=== PATIENT | male | born 1990 | race Caucasian/White ===

== ENCOUNTER 2019-04-23 20:46 | Emergency (ER) | payer SELFPAY ==
[~2019-04-23] VITALS: Ht 177.8 cm; Wt 70.3 kg
[~2019-04-23 20:46] MED LIST: QTP200T PO
--- OUTSIDE RECORDS SUMMARY | 2019-04-23 20:51 | XMS REPORT | Continuity of Care Document ---
Demographics Preferred Language Unknown Marital Status Unknown Nondenominational Affiliation Unknown Race Unknown Ethnic Group Unknown Author Organization Unknown Address Unknown Allergies There is no data. Medications There is no data. Problems Date Dx Coded Attending Type Code Diagnosis Diagnosed By 02/03/2013 729.5 PAIN IN LIMB 02/03/2013 782.0 DISTURBANCE OF SKIN SENSATION Procedures There is no data. Results There is no data. Encounters ACCT No. Visit Date/Time Discharge Status Pt. Type Provider Facility Loc./Unit Complaint [id number] 02/03/2013 08:41:00 02/03/2013 23:59:59 CLS Outpatient
[2019-04-23] MEDS ORDERED: DIAZ2TAB2 (21:08)
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
[2019-04-23] MEDS ORDERED: DIAZEPAM 5 MG (VALIUM) TABLET PO ONE (21:15)
[2019-04-23] MEDS ORDERED: DIAZ2TAB PO (21:19)
[2019-04-23 21:29] VITALS: BP 146/98
== END 2019-04-23 21:31 | disposition home or self-care (01) ==
LOC: EDUNIT# 20:46 → ER 20:48
DX: F13.230 Sedative, hypnotic or anxiolytic dependence with withdrawal, uncomplicated (principal); F41.9 Anxiety disorder, unspecified
CPT/HCPCS: 99283

== ENCOUNTER 2019-05-13 14:30 | Emergency (ER) | payer OTHER ==
[~2019-05-13] VITALS: Ht 177.8 cm; Wt 70.3 kg
[~2019-05-13 14:30] MED LIST changes: +DIAZ2TAB PO; +DIAZ2TAB2
[2019-05-13] MEDS ORDERED: HYDROcodone/APAP 7.5 MG/325 MG (LORTAB, LORCET PLUS) TABLET PO STA (15:04)
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
--- NOTE | 2019-05-13 15:22 | NUR ---
DR ENG INFORMED THAT R ANKLE IS HURTING NO DEFORMITY NOTED.
[2019-05-13] MEDS ORDERED: TETANUS,DIPTH,PERTUSS P/F (BOOSTRIX) 0.5 ML VIAL IM ONE (15:30)
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
--- NOTE | 2019-05-13 16:14 | NUR ---
WHILE IN ROOM GIVING MEDS PATIENT ASKED IF WE NEED TO HIS MEDICAL RECORDS. ALSO WANTS DR TO COME LOOK AT HIS TOE NAILS THINKS THEY DO NOT LOOK RIGHT DR ENG NOTIFIED
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
--- NOTE | 2019-05-13 17:29 | NUR ---
TECH TO ROOM TO CLEAN ABRASION ON HANDS AND LEGS.
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
[2019-05-13] MEDS ORDERED: CYCL10TA9 PO (18:13)
[2019-05-13 18:25] VITALS: BP 139/87
--- OUTSIDE RECORDS SUMMARY | 2019-05-13 22:06 | XMS REPORT | Continuity of Care Document ---
Demographics Preferred Language Unknown Marital Status Unknown Anglican Affiliation Unknown Race Unknown Ethnic Group Unknown Author Organization Unknown Address Unknown Allergies Active Description Code Type Severity Reaction Onset Reported/Identified Relationship to Patient Clinical Status Yes No Known Drug Allergies [id number] Drug Allergy Unknown N/A 12/22/2012 Medications There is no data. Problems Date Dx Coded Attending Type Code Diagnosis Diagnosed By 02/03/2013 729.5 PAIN IN LIMB 02/03/2013 782.0 DISTURBANCE OF SKIN SENSATION 04/27/2019 MARIE MULLEN APRN Ot F13.230 SEDATV/HYP/ANXIOLYTC DEPENDENCE W WITHDR 04/27/2019 MARIE MULLEN APRN Ot F41.9 ANXIETY DISORDER, UNSPECIFIED Procedures There is no data. Results There is no data. Encounters ACCT No. Visit Date/Time Discharge Status Pt. Type Provider Facility Loc./Unit Complaint [id number] 02/03/2013 08:41:00 02/03/2013 23:59:59 CLS Outpatient [id number] 04/23/2019 20:48:00 04/23/2019 21:31:00 DIS Outpatient MARIE MULLEN APRN [facility] ER MEDICATION WITHDRAWLS [id number] 05/13/2019 14:31:00 ACT Emergency VELASQUEZ REBOLLEDO, SUSANNAH Katz [facility] ER [address] [facility]
== END 2019-05-13 18:28 | disposition home or self-care (01) ==
LOC: EDUNIT# 14:30 → ER 14:31
DX: S09.90XA Unspecified injury of head, initial encounter (principal); S29.012A Strain of muscle and tendon of back wall of thorax, initial encounter; S40.012A Contusion of left shoulder, initial encounter; S70.02XA Contusion of left hip, initial encounter; S80.02XA Contusion of left knee, initial encounter; S50.02XA Contusion of left elbow, initial encounter; F41.9 Anxiety disorder, unspecified; F32.9 Major depressive disorder, single episode, unspecified; Z23 Encounter for immunization; Z87.820 Personal history of traumatic brain injury; Z87.891 Personal history of nicotine dependence; V18.0XXA Pedal cycle driver injured in noncollision transport accident in nontraffic accident, initial encounter
CPT/HCPCS: 70450; 71046; 72128; 73030; 73600; 73610; 90471; 90715